=== PATIENT | male | born 1960 | race American Indian/Alaskan Native ===

== ENCOUNTER 2021-02-18 23:01 | Emergency (ER) | payer OTHER ==
[2021-02-19 01:08] VITALS: BP 170/87
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
== END 2021-02-19 06:20 | disposition home or self-care (01) ==
LOC: ED 23:01
DX: M79.18 Myalgia, other site (principal); Z79.899 Other long term (current) drug therapy; V49.49XA Driver injured in collision with other motor vehicles in traffic accident, initial encounter; Y92.410 Unspecified street and highway as the place of occurrence of the external cause; Y93.89 Activity, other specified; Y99.8 Other external cause status
CPT/HCPCS: 72040; 72100; 99283